=== PATIENT | male | born 2000 | race Caucasian/White ===

== ENCOUNTER 2023-09-26 22:15 | Emergency (ER) | payer OTHER ==
[2023-09-26 22:39] VITALS: BP 143/72; O2SAT 98
[2023-09-27] MEDS ORDERED: BACITRACIN ZINC OINT 1 PACKET TOP STA (00:19)
--- NOTE | 2023-09-27 00:21 | ED Physician Documentation ---
PD HPI SKIN - Stated complaint Stated Complaint: HEAD LAC/FALL - Chief complaint Chief Complaint: Laceration - History obtained from History obtained from: Patient - Additional information Additional information: The pt comes to the ED with CC of laceration to top of scalp after hitting the top of his head on an airplane door just [employer]. No LOC. Bleeding controlled. UTD on tetanus. PD PAST MEDICAL HISTORY - Past Medical History Past Medical History: Yes Cardiovascular: None Respiratory: None Neuro: None Endocrine/Autoimmune: None GI: GERD : None HEENT: None Psych: None Musculoskeletal: Other Derm: None - Past Surgical History Past Surgical History: Yes Ortho: Other - Present Medications Home Medications: Ambulatory Orders Medication Instructions Recorded Confirmed Gabapentin [Neurontin] 600 mg PO DAILY 09/26/23 - Allergies Allergies/Adverse Reactions: Allergies Allergy/AdvReac Type Severity Reaction Status Date / Time No Known Drug Allergies Allergy Verified 09/26/23 22:33 - Social History Does the pt smoke?: No Smoking Status: Never smoker Does the pt drink ETOH?: Yes Does the pt have substance abuse?: No - Immunizations Immunizations are current?: Yes - POLST Patient has POLST: No PD ED PE NORMAL - Vitals Vital signs reviewed: Yes - General General: Alert and oriented X 3, No acute distress, Well developed/nourished - HEENT HEENT: EOMI, Moist mucous membranes, Other (1.5 cm lac to top of scalp. Bleeding controlled.) - Cardiac Cardiac: RRR, No murmur - Respiratory Respiratory: Clear bilaterally - Abdomen Abdomen: Normal bowel sounds, Soft, Non tender, Non distended - Derm Derm: Warm and dry - Extremities Extremities: No deformity - Neuro Neuro: Alert and oriented X 3 - Psych Psych: Normal mood, Normal affect Results - Vitals Vitals: Oxygen O2 Source Room air Procedures - Laceration (location) scalp Length in cm: 1.5 Wound type: Linear, Into subcut fat, Clean Neurovascular status: Sensory intact, Motor intact, Vascular intact Anesthesia: Lidocaine 1% Wound preparation: Hibiclens, Irrigated copiously NS, Wound explored, To the base Skin layer closure: [place] (3) Other: Patient tolerated well, No complications, Neurovascular intact, Dressing applied, Tetanus UTD PD Medical Decision Making - ED course Complexity details: considered differential, d/w patient ED course: Scalp wound repaired, as above. Wound care and timeline for staple removal and the usual indications for return all discussed with the pt. Departure - Departure Disposition: 01 Home, Self Care Clinical Impression: Laceration Condition: Stable Instructions: ED Laceration Scalp Stitch Or Stap Comments: 3 reese have been placed in your scalp to close the laceration. These should be left in place for 7 to 10 days after which, they Should be removed by medical professional. You may let water and soap run over the wound but please do not rub, scrub, or immerse the wound until the reese are removed. This is to prevent infection. You may apply an antibiotic ointment such as Neosporin daily until the scab forms and becomes dry. Forms: PCP List Discharge Date/Time: 09/27/23 00:05
== END 2023-09-27 00:05 | disposition home or self-care (01) ==
LOC: ED 22:15
DX: S01.01XA Laceration without foreign body of scalp, initial encounter (principal); W22.8XXA Striking against or struck by other objects, initial encounter; Y92.813 Airplane as the place of occurrence of the external cause; Z79.899 Other long term (current) drug therapy
CPT/HCPCS: 12001; 99282

== ENCOUNTER 2024-04-05 16:57 | Emergency (ER) | payer OTHER ==
--- NOTE | 2024-04-05 17:50 | ED Physician Documentation ---
PD HPI OPHTHO - Stated complaint Stated Complaint: R EYE PX - Chief complaint Chief Complaint: Heent - History obtained from History obtained from: Patient - Additional information Additional information: He had a cold recently but more over the last couple of days has developed swelling of the whites of the eyes and tearing and burning. PD PAST MEDICAL HISTORY - Past Medical History Cardiovascular: None Respiratory: None Neuro: None Endocrine/Autoimmune: None GI: GERD : None HEENT: None Psych: None Musculoskeletal: Other Derm: None - Past Surgical History Past Surgical History: Yes Ortho: Other - Present Medications Home Medications: Ambulatory Orders Medication Instructions Recorded Confirmed Gabapentin [Neurontin] 600 mg PO DAILY 09/26/23 Ketotifen Fumarate [Alaway] 1 drops OP BID #10 ml 04/05/24 - Allergies Allergies/Adverse Reactions: Allergies Allergy/AdvReac Type Severity Reaction Status Date / Time No Known Drug Allergies Allergy Verified 04/05/24 17:06 - Social History Does the pt smoke?: No Smoking Status: Never smoker Does the pt drink ETOH?: Yes Does the pt have substance abuse?: No - Immunizations Immunizations are current?: Yes - POLST Patient has POLST: No PD ED PE NORMAL - Vitals Vital signs reviewed: Yes - General General: Alert and oriented X 3, No acute distress - HEENT HEENT: PERRL, EOMI, Other (He has a pretty significant case of what looks like either viral or allergic conjunctivitis bilaterally with chemosis, right worse than left.) - Neuro Neuro: Alert and oriented X 3 Results - Vitals Vitals: Vital Signs - 24 hr 04/05/24 17:03 Temperature 36.7 C Heart Rate 101 H Respiratory 16 Rate Blood Pressure 152/85 H O2 Saturation 99 Oxygen O2 Source Room air Departure - Departure Disposition: 01 Home, Self Care Clinical Impression: Conjunctivitis Qualifiers: Conjunctivitis type: acute Acute conjunctivitis type: unspecified Laterality: bilateral Qualified Code(s): H10.33 - Unspecified acute conjunctivitis, b ilateral Condition: Good Record reviewed to determine appropriate education?: Yes Instructions: ED Allergic Conjunctivitis Prescriptions: Ketotifen Fumarate [Alaway] 1 drops OP BID #10 ml Comments: This does not look bacterial to me, it looks more like either a viral or allergic process. I am prescribing you some anti-inflammatory drops which I think will be very helpful for you over the next few days. Return for new or worsening symptoms. Make sure your flight surgeon is aware of the issue.
[2024-04-05 17:59] VITALS: BP 130/80; O2SAT 100
== END 2024-04-05 17:55 | disposition home or self-care (01) ==
LOC: ED 16:57
DX: H10.33 Unspecified acute conjunctivitis, bilateral (principal)
CPT/HCPCS: 99282; 99283

== ENCOUNTER 2024-05-02 10:00 | Outpatient (CLI) | payer OTHER ==
--- NOTE | 2024-05-02 14:22 | XRAY Report ---
PROCEDURE: Ankle 3+V LT INDICATIONS: SPRAIN OF OTHER LIGAMENT OF LEFT ANKLE TECHNIQUE: 2 views of the ankle were acquired. COMPARISON: None. FINDINGS/IMPRESSION: Bimalleolar soft tissue swelling, lateral greater than medial. No acute fracture or dislocation. Join t spaces are well maintained. Reviewed by: Lina Coon MD on 05/02/2024 2:21 PM PDT Approved by: Lina Coon MD on 05/02/2024 2:21 PM PDT Station ID: [id number]
== END 2024-05-02 10:15 | disposition home or self-care (01) ==
LOC: DI.N 10:00
PROVIDERS: ATTEND Family Medicine
DX: S93.492A Sprain of other ligament of left ankle, initial encounter (principal)

== ENCOUNTER 2024-06-12 10:04 | Outpatient (CLI) | payer OTHER ==
--- NOTE | 2024-06-12 11:22 | Sleep Patient Instructions ---
Sleep Center Visit Summary - Patient Visit Information Reason for Visit: Initial consult for evaluation of sleep disordered breathing and other sleep issues. - Patient Instructions Instructions Attached: Sleep Study Home Monitor Additional Instructions: You will be completing a sleep study, either an in-lab polysomnography (PSG) or home sleep study (HST). You will follow-up in the sleep care office after the sleep study is completed to hear the results and talk about therapy, if needed. You will be called by our office staff to schedule this appointment, but you may contact us with any questions. - Clinic Information Contact: [facility] [address] [place] [address] [email or web address] T: [phone]
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
[2024-06-12 11:36] VITALS: BP 136/73; O2SAT 95
== END 2024-06-12 10:05 | disposition home or self-care (01) ==
LOC: SC 10:04
PROVIDERS: ATTEND Nurse Practitioner Family
DX: R06.83 Snoring (principal); R53.83 Other fatigue; G47.8 Other sleep disorders; R06.81 Apnea, not elsewhere classified; E66.3 Overweight; Z68.27 Body mass index [BMI] 27.0-27.9, adult
CPT/HCPCS: 99203; 99212